=== PATIENT | female | born 2000 | race Caucasian/White ===

== ENCOUNTER 2019-12-20 10:39 | Emergency (ER) | payer OTHER ==
--- NOTE | 2019-12-20 11:01 | ED ---
General Adult HPI - General Chief complaint: Skin/Abscess/Foreign Body Stated complaint: rash Time Seen by Provider: 12/20/19 10:54 Source: patient, RN notes reviewed Mode of arrival: ambulatory Limitations: no limitations - History of Present Illness Initial comments: 19-year-old female with a past medical history of bipolar disorder presents to the emergency room for rash. Patient states she has had an itchy rash on her chest and abdomen for about 4 days now. Patient initially thought it with a heat rash but it is not going away. Patient does admit to sore throat as well. She denies fevers. She denies any other constitutional symptoms.Patient has no other complaints at this time including shortness of breath, chest pain, abdominal pain, nausea or vomiting, headache, or visual changes. - Related Data Home Medications Medication Instructions Recorded Confirmed QUEtiapine FUMARATE [SEROquel XR] 50 mg PO HS 12/05/13 06/23/14 Previous Rx's Medication Instructions Recorded Acetaminophen-Codeine 300-30mg 1 each PO Q6H PRN #20 tablet 06/23/14 [Tylenol #3] Ibuprofen [Motrin] 400 mg PO Q8HR PRN #20 tab 06/23/14 Ondansetron Odt [Zofran ODT] 4 mg PO Q8HR PRN #10 tab 06/23/14 Sulfamethoxazole/Trimethoprim 1 each PO Q12H #20 tab 06/23/14 [Bactrim DS 800-160 mg] Permethrin 5% Cream [Elimite] 1 applic TOPICAL ONCE #1 tube 12/20/19 hydrOXYzine HCL [Atarax] 25 mg PO TID PRN #20 tab 12/20/19 predniSONE 50 mg PO DAILY #5 tablet 12/20/19 Allergies Allergy/AdvReac Type Severity Reaction Status Date / Time No Known Allergies Allergy Verified 12/20/19 10:45 Review of Systems ROS Statement: Those systems with pertinent positive or pertinent negative responses have been documented in the HPI. ROS Other: All systems not noted in ROS Statement are negative. Past Medical History Past Medical History: No Reported History Additional Past Medical History / Comment(s): bipolar. adopted History of Any Multi-Drug Resistant Organisms: None Reported Past Surgical History: No Surgical Hx Reported Past Anesthesia/Blood Transfusion Reactions: No Reported Reaction Past Psychological History: Bipolar Smoking Status: Current every day smoker Past Alcohol Use History: None Reported Past Drug Use History: None Reported General Exam Limitations: no limitations General appearance: alert, in no apparent distress Head exam: Present: atraumatic, normocephalic, normal inspection Eye exam: Present: normal appearance, PERRL, EOMI. Absent: scleral icterus, conjunctival injection ENT exam: Present: normal exam, normal oropharynx (No tonsillar exudates bilaterally, uvula midline), mucous membranes moist, TM's normal bilaterally, normal external ear exam Neck exam: Present: normal inspection, full ROM. Absent: tenderness, meningismus Respiratory exam: Present: normal lung sounds bilaterally. Absent: respiratory distress, wheezes, rales, rhonchi, stridor Cardiovascular Exam: Present: regular rate, normal rhythm, normal heart sounds. Absent: systolic murmur, diastolic murmur, rubs, gallop, clicks GI/Abdominal exam: Present: soft, normal bowel sounds. Absent: distended, tenderness, guarding, rebound, rigid Neurological exam: Present: alert Skin exam: Present: rash (Patient has an erythematous sandpaper like erythemat ous rash noted to the chest and abdomen.) Course Vital Signs 12/20/19 10:46 Temperature 98.1 F Pulse Rate 76 Respiratory 18 Rate Blood Pressure 125/86 O2 Sat by Pulse 100 Oximetry Medical Decision Making - Medical Decision Making patient has an erythematous somewhat sandpapery rash with excoriations and tracking noted to the chest and abdomen and also the flexor surfaces of the wrist. it is possible that patient has scabies. At this time she'll be treated with permethrin. She'll also be given a course of steroids and Atarax. She will follow up with dermatology. She'll return here for any worsening symptoms.patient denies any chance of . - Lab Data Lab Results 12/20/19 Range/Units 11:04 Group A Strep Rapid Negative (Negative) Disposition Clinical Impression: Rash Disposition: HOME SELF-CARE Condition: Good Instructions (If sedation given, give patient instructions): Scabies (ED), Acute Rash (ED) Additional Instructions: Please use medications as directed. Do not drive while taking Atarax. Follow- up with your doctor in one to 2 days. Follow up with dermatology as well. If you have any worsening symptoms return to the emergency room. Prescriptions: hydrOXYzine HCL [Atarax] 25 mg PO TID PRN #20 tab PRN Reason: Itching Permethrin 5% Cream [Elimite] 1 applic TOPICAL ONCE #1 tube predniSONE 50 mg PO DAILY #5 tablet Is patient prescribed a controlled substance at d/c from ED?: No Referrals: Era Gomez MD [Primary Care Provider] - 1-2 days Niru Ontiveros MD [STAFF PHYSICIAN] - 1-2 days Time of Disposition: 11:54
[2019-12-20 12:11] VITALS: BP 126/78; PULSE 82; RESP 16; TEMP 97.7
== END 2019-12-20 12:11 | disposition home or self-care (01) ==
LOC: EC 10:39
DX: R21 Rash and other nonspecific skin eruption (principal); F17.200 Nicotine dependence, unspecified, uncomplicated; F31.9 Bipolar disorder, unspecified; J02.9 Acute pharyngitis, unspecified; Z79.899 Other long term (current) drug therapy
CPT/HCPCS: 87081; 87430; 99283

== ENCOUNTER 2020-11-04 13:08 | Emergency (ER) | payer BC ==
[2020-11-04] MEDS ORDERED: HYDROcodone/APAP 5-325MG 1 EACH TAB PO STA (14:31)
[2020-11-04] MEDS ORDERED: SODIUM CHLORIDE 0.9% 1,000 ML IV STA (14:31)
--- NOTE | 2020-11-04 14:34 | ED ---
General Adult HPI - General Chief complaint: Dizziness Stated complaint: Dizziness Source: patient, RN notes reviewed, old records reviewed Mode of arrival: wheelchair Limitations: no limitations - History of Present Illness Initial comments: 20-year-old ill-appearing and pleasant white female, alert and oriented 4, presents to the emergency room with complaints of right-sided rib pain for 2 months. 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 Today she had to leave at 10:00 to come in for chest x-ray and during the chest x-ray she. Dizzy with the room was spinning. She states that she did not pass out and did not hit her head. She did not eat at all today and has not been having adequate fluid intake. This is never happened to her before. Patient states she has history of bipolar but does not take any medication on a daily basis. She is 2-3 pack a day smoker. She also vapes. She did try Motrin for the pain prior to arrival today but had no relief. -: month(s) (2) Radiation: non-radiation Severity scale (1-10): 10 Quality: stabbing Consistency: constant Improves with: immobilization Worsens with: movement Associated Symptoms: other (Dizziness) Treatments Prior to Arrival: NSAID, other (Chest x-ray) - Related Data Home Medications Medication Instructions Recorded Confirmed QUEtiapine FUMARATE [SEROquel XR] 50 mg PO HS 12/05/13 06/23/14 Previous Rx's Medication Instructions Recorded Acetaminophen-Codeine 300-30mg 1 each PO Q6H PRN #20 tablet 06/23/14 [Tylenol #3] Ibuprofen [Motrin] 400 mg PO Q8HR PRN #20 tab 06/23/14 Ondansetron Odt [Zofran ODT] 4 mg PO Q8HR PRN #10 tab 06/23/14 Sulfamethoxazole/Trimethoprim 1 each PO Q12H #20 tab 06/23/14 [Bactrim DS 800-160 mg] Permethrin 5% Cream [Elimite] 1 applic TOPICAL ONCE #1 tube 12/20/19 hydrOXYzine HCL [Atarax] 25 mg PO TID PRN #20 tab 12/20/19 predniSONE 50 mg PO DAILY #5 tablet 12/20/19 Allergies Allergy/AdvReac Type Severity Reaction Status Date / Time No Known Allergies Allergy Verified 11/04/20 13:26 Review of Systems ROS Statement: Those systems with pertinent positive or pertinent negative responses have been documented in the HPI. ROS Other: All systems not noted in ROS Statement are negative. Past Medical History Past Medical History: No Reported History Additional Past Medical History / Comment(s): bipolar. adopted History of Any Multi-Drug Resistant Organisms: None Reported Past Surgical History: No Surgical Hx Reported Past Anesthesia/Blood Transfusion Reactions: No Reported Reaction Past Psychological History: Bipolar Smoking Status: Current every day smoker Past Alcohol Use History: None Reported Past Drug Use History: None Reported General Exam Limitations: no limitations General appearance: alert, in no apparent distress Head exam: Present: atraumatic, normocephalic, normal inspection Eye exam: Present: normal appearance, PERRL, EOMI. Absent: scleral icterus, conjunctival injection, periorbital swelling Pupils: Present: normal accommodation ENT exam: Present: normal exam, normal oropharynx, mucous membranes moist Neck exam: Present: normal inspection, full ROM. Absent: tenderness, meningismus, lymphadenopathy, thyromegaly Respiratory exam: Present: normal lung sounds bilaterally, chest wall tenderness (Right sided lower rib pain anterior chest no bruising). Absent: respiratory distress, wheezes, rales, rhonchi, stridor, accessory muscle use, decreased breath sounds, prolonged expiratory Cardiovascular Exam: Present: regular rate, normal rhythm, normal heart sounds. Absent: systolic murmur, diastolic murmur, rubs, gallop, clicks GI/Abdominal exam: Present: soft, normal bowel sounds. Absent: distended, tenderness, guarding, rebound, rigid Extremities exam: Present: normal inspection, full ROM, normal capillary refill. Absent: tenderness, pedal edema, joint swelling, calf tenderness Back exam: Present: normal inspection, full ROM. Absent: tenderness, CVA tenderness (R), CVA tenderness (L), muscle spasm, paraspinal tenderness, vertebral tenderness, rash noted Neurological exam: Present: alert, oriented X3, CN II-XII intact Psychiatric exam: Present: normal affect, normal mood Skin exam: Present: warm, dry, intact, normal color. Absent: rash, cyanosis, diaphoretic, erythema, petechiae, pallor, mottled Course Vital Signs 11/04/20 13:22 Temperature 98.0 F Pulse Rate 69 Respiratory 18 Rate Blood Pressure 101/70 O2 Sat by Pulse 99 Oximetry EKG Findings - EKG Results: EKG: sinus rhythm (Ventricular rate of 71, ND interval 0.156, QRS of 0.78, QTC of 0.410) Medical Decision Making - Medical Decision Making Hemoglobin and hematocrit is 14 and 43 respectively, WBC count 6.6, potassium is 4.0, troponin is negative at 0.012, glucose is 83. Patient was given a liter of normal saline she states that she hasn't eaten or drank anything today and is working in a factory. Patient also states that she is a 2-3 pack-a-day smoker along with vaping. X-ray done earlier today shows no definitive rib fractures. Her pain is likely due to repetitive movement at work. She was given [place] for pain and reports relief. She'll be discharged home to follow up with her primary care doctor. Case discussed with Dr. Tate. - Lab Data Result diagrams: 11/04/20 14:40 11/04/20 14:40 Lab Results 11/04/20 11/04/20 11/04/20 Range/Units 14:40 14:40 14:40 WBC 6.6 (3.8-10.6) k/uL RBC 5.18 (3.80-5.40) m/uL Hgb 14.8 (11.4-16.0) gm/dL Hct 43.5 (34.0-46.0) % MCV 83.9 (80.0-100.0) fL MCH 28.6 (25.0-35.0) pg MCHC 34.2 (31.0-37.0) g/dL RDW 13.1 (11.5-15.5) % Plt Count 242 (150-450) k/uL MPV 7.8 Neutrophils % 59 % Lymphocytes % 26 % Monocytes % 8 % Eosinophils % 5 % Basophils % 0 % Neutrophils # 3.9 (1.3-7.7) k/uL Lymphocytes # 1.7 (1.0-4.8) k/uL Monocytes # 0.6 (0-1.0) k/uL Eosinophils # 0.3 (0-0.7) k/uL Basophils # 0.0 (0-0.2) k/uL Sodium 141 (137-145) mmol/L Potassium 4.0 (3.5-5.1) mmol/L Chloride 105 (98-107) mmol/L Carbon Dioxide 26 (22-30) mmol/L Anion Gap 10 mmol/L BUN 11 (7-17) mg/dL Creatinine 0.63 (0.52-1.04) mg/dL Est GFR (CKD-EPI)AfAm >90 (>60 ml/min/1.73 sqM) Est GFR (CKD-EPI)NonAf >90 (>60 ml/min/1.73 sqM) Glucose 83 (74-99) mg/dL Calcium 9.6 (8.4-10.2) mg/dL Total Bilirubin 0.3 (0.2-1.3) mg/dL AST 24 (14-36) U/L ALT 17 (4-34) U/L Alkaline Phosphatase 69 (38-126) U/L Troponin I <0.012 (0.000-0.034) ng/mL Total Protein 7.3 (6.3-8.2) g/dL Albumin 4.5 (3.5-5.0) g/dL Disposition Clinical Impression: Musculoskeletal chest pain, Postural dizziness with near syncope Disposition: HOME SELF-CARE Condition: Good Instructions (If sedation given, give patient instructions): Chest Pain (ED), D izziness (ED) Additional Instructions: Decrease your smoking. Increase your fluid intake. Follow-up with your primary care doctor in 1 week. Take Motrin as needed for right-sided rib pain. Return with worsening symptoms, difficulty breathing or fevers. Is patient prescribed a controlled substance at d/c from ED?: No Referrals: Era Gomez MD [Primary Care Provider] - 1-2 days Time of Disposition: 15:50
[2020-11-04 15:02] LABS: Basophils % (A) 0 %; Eosinophils # (A) 0.3 k/uL (0-0.7); Eosinophils % (A) 5 %; HCT 43.5 % (34.0-46.0); HGB 14.8 gm/dL (11.4-16.0); Lymphocytes # (A) 1.7 k/uL (1.0-4.8); Lymphocytes % (A) 26 %; MCH 28.6 pg (25.0-35.0); MCHC 34.2 g/dL (31.0-37.0); MCV 83.9 fL (80.0-100.0); Mean Platelet Volume 7.8; Monocytes # (A) 0.6 k/uL (0-1.0); Monocytes % (A) 8 %; Neutrophils # (A) 3.9 k/uL (1.3-7.7); Neutrophils % (A) 59 %; Platelet Count 242 k/uL (150-450); RBC 5.18 m/uL (3.80-5.40); RDW 13.1 % (11.5-15.5); WBC 6.6 k/uL (3.8-10.6)
[2020-11-04 15:12] LABS: ALT 17 U/L (4-34); AST 24 U/L (14-36); African American GFR (CKD) >90 (>60 ml/min/1.73 sqM); Albumin 4.5 g/dL (3.5-5.0); Alkaline Phosphatase 69 U/L (38-126); Anion Gap 10 mmol/L; Blood Urea Nitrogen 11 mg/dL (7-17); Calcium 9.6 mg/dL (8.4-10.2); Carbon Dioxide 26 mmol/L (22-30); Chloride 105 mmol/L (98-107); Glucose 83 mg/dL (74-99); Non-African American GFR(CKD) >90 (>60 ml/min/1.73 sqM); Sodium 141 mmol/L (137-145); Total Bilirubin 0.3 mg/dL (0.2-1.3); Total Protein 7.3 g/dL (6.3-8.2)
[2020-11-04 16:22] VITALS: BP 119/74; PULSE 74; RESP 17; TEMP 98.2
== END 2020-11-04 16:25 | disposition home or self-care (01) ==
LOC: EC 13:08
DX: R07.89 Other chest pain (principal); R42 Dizziness and giddiness; R55 Syncope and collapse; F17.200 Nicotine dependence, unspecified, uncomplicated
CPT/HCPCS: 80053; 84484; 85025; 93005; 96360; 99285

== ENCOUNTER → 2020-11-04 | Outpatient (CLI) | payer BC ==
[2020-11-04 13:04] LABS: Glucose,Whole Blood 102 mg/dL (75-99)
--- NOTE | 2020-11-04 15:11 | XR ---
EXAMINATION TYPE: XR ribs bilateral DATE OF EXAM: 11/04/2020 COMPARISON: NONE HISTORY: Right lower rib pain x2 months TECHNIQUE: 7 views chest and neck FINDINGS: IMPRESSION: No definite displaced rib fractures.
== END | disposition home or self-care (01) ==
LOC: RADXRMAIN 12:26
PROVIDERS: ATTEND Internal Medicine
DX: R07.81 Pleurodynia (principal)
CPT/HCPCS: 71110

== ENCOUNTER 2023-07-25 17:44 | Outpatient (CLI) | payer BC ==
[2023-07-25 18:18] VITALS: BP 127/86; PULSE 64; RESP 15; TEMP 98.2
[2023-07-25] MEDS: LACTATED RINGERS 1,000 ML IV ONE (18:54)
--- NOTE | 2023-07-25 22:49 | US ---
EXAMINATION TYPE: US OB BPP wo non-stress DATE OF EXAM: 07/25/2023 COMPARISON: NONE CLINICAL INDICATION: Female, 22 years old with history of Low baseline; low heart rate TECHNIQUE: Limited transabdominal (TA) ultrasound of the pelvis was performed, for the above indicati ons. Scoring by the oracle hrms developer during real-time assessment. FINDINGS: BPP PARAMETERS: PRESENTATION: Vertex LIE: Longitudinal?? HEART RATE: 102 bpm RHYTHM: Normal BURKE: 14.4 DIAPHRAGM IMAGED: Yes BPP SCORIN. Breathin (1 episode of breathing of 30 second duration in 30 minutes of scanning time) 2. Movement: 2 (at least 3 discrete body movements in 30 minutes) 3. Tone: 2 (1 episode of active flexion/extension of limb) 4. BURKE: 2 (BURKE index > 5cm) PRODUCT INSPECTION SUPERVISOR NOTES: IMPRESSION: * BPP TOTAL SCORE: 8 / 8 * Vertex presentation fetus with heart rate 102 bpm, normal BURKE.
== END 2023-07-25 20:00 | disposition home or self-care (01) ==
LOC: FBPOP 17:44
PROVIDERS: ATTEND Obstetrics & Gynecology
DX: O36.5930 Maternal care for other known or suspected poor fetal growth, third trimester, not applicable or unspecified (principal); Z3A.38 38 weeks gestation of pregnancy
CPT/HCPCS: 59025; 76819; 96360; 99214

== ENCOUNTER 2023-07-28 09:54 | Outpatient (CLI) | payer BC ==
[2023-07-28 11:03] LABS: Appearance,Urine Cloudy (Clear); Bacteria,Urine Rare /hpf; Bilirubin,Urine Negative (Negative); Blood,Urine Negative (Negative); Color,Urine Colorless; Glucose,Urine (UA) Negative (Negative); Ketones,Urine Negative (Negative); Leukocyte Esterase,Urine Small (Negative); Mucus,Urine Rare /hpf; Nitrite,Urine Negative (Negative); Protein,Urine Negative (Negative); RBC,Urine 1 /hpf (0-5); Specific Gravity,Urine 1.012 (1.001-1.035); Squamous Epithelial Cell,Urine 8 /hpf (0-4); Urobilinogen,Urine <2.0 mg/dL (<2.0); WBC,Urine 3 /hpf (0-5)
[2023-07-28 12:10] VITALS: BP 122/95; PULSE 63; RESP 18; TEMP 97.7
--- NOTE | 2023-07-29 08:13 | P.MSEPDOC ---
Presenting Problems - Arrival Data Date of Arrival on Unit: 07/28/23 Time of Arrival on Unit: 09:54 Mode of Transport: Ambulatory - Complaint OB-Reason for Admission/Chief Complaint: Possible Onset of Labor Comment: cramping and pain with voiding since 229 Medical History - Information : 1 Para: 0 Term: 0 : 0 Abortions: Spontaneous or Elective: 0 Number of Living Children: 0 - Gestational Age Gestational Age by HILARIA (wks/days): 38 Weeks and 5 Days - History Complications: Smoker Comment: hai Review of Systems - Review of Systems Constitutional: No problems Breast: No problems ENT: No problems Cardiovascular: No problems Respiratory: No problems Gastrointestinal: No problems Genitourinary: No problems Musculoskeletal: No problems Neurological: No problems Skin: No problems Vital Signs - Temperature Temperature: 97.7 F Temperature Source: Temporal Artery Scan - Pulse Right Sitting Brachial Pulse Rate: 63 Pulse Assessment Method: Automatic Cuff - Respirations Respiratory Rate: 18 Oxygen Delivery Method: Room Air - Blood Pressure Right Arm Sitting Blood Pressure: 122/95 Blood Pressure Mean: 104 Blood Pressure Source: Automatic Cuff Left Arm Sitting Blood Pressure: 112/83 Blood Pressure Mean: 92 Blood Pressure Source: Automatic Cuff Medical Screen Scoring - Cervical Exam Dilation (cm): 1 Effacement (%): 70 Station: -2 Membranes: Intact - Assessment - Baby A Baseline FHR: 120 Heart Rate - NICHD Category: Category I (Normal) NST: Reactive Physician Notification - Physician Notified Physician Notified Date: 07/28/23 Physician Notified Time: 11:25 Physician: Tran Red New Order Received: Yes (dc home) Maternal Triage Index - Maternal Triage Index Presenting for scheduled procedure w/no complaint: No - Stat/Priority 1 Stat Priority 1: No - Urgent/Priority 2 Urgent Priority 2: No - Prompt/Priority 3 Prompt Priority 3: No - Non-Urgent/Priority 4 Non-Urgent Priority 4: Yes Criteria Met for Priority 4: irreg contractions, UA result reported, no cervical change in one hour. DC home. follow up in the office next week as scheduled. Disposition - Disposition OB Disposition: Discharge to home, Written follow up instructions reviewed Discharge Date: 07/28/23 Discharge Time: 11:30 I agree with the RN Medical Screening Exam: Yes Case reviewed; plan agreed upon as documented in EMR&OBIX.: Yes Diagnosis: PRIMARY INADEQUATE CONTRACTIONS
== END 2023-07-28 11:30 | disposition home or self-care (01) ==
LOC: FBPOP 09:54
PROVIDERS: ATTEND Obstetrics & Gynecology
DX: O47.1 False labor at or after 37 completed weeks of gestation (principal); O62.0 Primary inadequate contractions; Z3A.38 38 weeks gestation of pregnancy
CPT/HCPCS: 59025; 81001; 99213

== ENCOUNTER 2023-08-02 09:07 | Inpatient (IN) | payer BC ==
[2023-08-02] MEDS ORDERED: OXYTOCIN 10 UNIT/ML 1 ML VIAL IM PRN ×2 (11:17→20:14)
[2023-08-02] MEDS ORDERED: LIDOCAINE 0.5% (PF) 5 MG/ML (50 ML SDV) SQ PRN (11:17)
[2023-08-02] MEDS ORDERED: TERBUTALINE 1 MG/ML VIAL SQ PRN (11:17)
[2023-08-02] MEDS ORDERED: miSOPROStoL 200 MCG TAB PO PRN ×2 (11:17→20:14)
[2023-08-02] MEDS ORDERED: CARBOPROST TROMETHAMINE 250 MCG/ML 1 ML AMP IM PRN ×2 (11:17→20:14)
[2023-08-02] MEDS ORDERED: METHYLERGONOVINE 0.2 MG/ML 1 ML AMP IM PRN ×2 (11:17→20:14)
[2023-08-02] MEDS ORDERED: TRANEXAMIC 1,000 MG/100ML-NACL 1,000 MG in EMPTY BAG 1 BAG IV PRN ×2 (11:17→20:14)
[2023-08-02 11:40] LABS: Basophils % (A) 0 %; Eosinophils # (A) 0.2 k/uL (0-0.7); Eosinophils % (A) 2 %; HCT 34.7 % (34.0-46.0); HGB 11.1 gm/dL (11.4-16.0); Hypochromasia Slight; Lymphocytes # (A) 1.9 k/uL (1.0-4.8); Lymphocytes % (A) 16 %; MCH 25.8 pg (25.0-35.0); MCHC 32.1 g/dL (31.0-37.0); MCV 80.5 fL (80.0-100.0); Mean Platelet Volume 8.6; Monocytes # (A) 0.9 k/uL (0-1.0); Monocytes % (A) 7 %; Neutrophils # (A) 8.7 k/uL (1.3-7.7); Neutrophils % (A) 73 %; Platelet Count 329 k/uL (150-450); Poikilocytosis Slight; RBC 4.31 m/uL (3.80-5.40); RDW 14.9 % (11.5-15.5)
[2023-08-02] MEDS: LACTATED RINGERS 1,000 ML IV SCH ×2 (13:00→21:00)
--- NOTE | 2023-08-02 14:58 | P.HPOB ---
History of Present Illness H&P Date: 08/02/23 Chief Complaint: Labor Ms. Wong is a 22 year old at 39 weeks and 3 days with EDC of 08/06/2023 by 29 week US who presents to labor and delivery with regular, painful uterine contractions. She denies leaking of fluid, vaginal bleeding. She is feeling normal movement. The has been complicated by late presentation to care in the third trimester. The patient also vapes tobacco despite smoking cessation counseling and a discussion about the risks to the fetus. The fetus is small for gestational age measuring in the 15%ile at 38 weeks gestation on utlrasound. work-up: blood type O positive, antibody negative. Rubella immune, VDRL non-reactive, HIV negative, HBsAg negative, HCV Ab non-reactive, gonorrhea negative, chlamydia negative, 1 hour GTT within normal limits, GBS negative. Patient declined TDap and flu vaccine. Past Medical History Past Medical History: No Reported History Additional Past Medical History / Comment(s): bipolar. adopted History of Any Multi-Drug Resistant Organisms: None Reported Past Surgical History: No Surgical Hx Reported Past Anesthesia/Blood Transfusion Reactions: No Reported Reaction Past Psychological History: Bipolar Smoking Status: Never smoker Past Alcohol Use History: None Reported Past Drug Use History: None Reported - Past Family History Mother History Unknown: Yes Family Medical History: No Reported History Medications and Allergies Home Medications Medication Instructions Recorded Confirmed Type Vit No.179/Iron/Folic 1 tablet PO DAILY 07/28/23 08/02/23 History [ Tablet] Allergies Allergy/AdvReac Type Severity Reaction Status Date / Time No Known Allergies Allergy Verified 08/02/23 09:34 Exam Vital Signs Temp Pulse Resp BP Pulse Ox 08/02/23 13:04 99.0 F 66 16 125/84 99 08/02/23 10:32 98.3 F 62 16 131/86 Intake and Output 08/01/23 08/02/23 08/02/23 22:59 06:59 14:59 Other: Weight 57.606 kg Focused physical exam is performed. Patient is a healthy-appearing in no apparent distress. Breathing is non-labored. Abdomen is gravid and non-tender. Cervix is 3/90/-1 (changed from 1/90/-2 on arrival) and AROM is undertaken revealing clear amniotic fluid. Extremities are non-tender and non-edematous. heart tones are Category I and the tocometer shows contractions every 5 minutes. Results Result Diagrams: 08/02/23 11:20 Abnormal Lab Results - Last 24 Hours (Table) 08/02/23 Range/Units 11:20 WBC 12.0 H (3.8-10.6) k/uL Hgb 11.1 L (11.4-16.0) gm/dL Neutrophils # 8.7 H (1.3-7.7) k/uL Assessment and Plan Assessment: 22 year old at 39 weeks and 3 days presenting in labor Plan: Admit, NPO, expectant management, continuous EFM and tocometer, close monitoring of patient. Anticipate vaginal delivery.
[2023-08-02] MEDS: OXYTOCIN 30 UNITS/500 ML NS 30 UNIT in SALINE 1 500ML.BAG IV SCH ×2 (18:06→21:00)
[2023-08-02] MEDS: CITRIC ACID-SODIUM CITRATE 15 ML CUP PO ONE (20:20)
--- NOTE | 2023-08-02 21:33 | P.OP ---
Date of Procedure: 08/02/23 Preoperative Diagnosis: 1. Term IUP at 39 weeks 2. Arrest of descent 3. caput Postoperative Diagnosis: 1. Term IUP at 39 weeks 2. Arrest of descent 3. caput 4. Asynclitic presentation 5. Right Occiput transverse presentation Procedure(s) Performed: Primary Lower Transverse Section Implants: None Anesthesia: epidural Surgeon: Padmini Rhodes Competitive Athlete #1: Eleanor Lawrence Estimated Blood Loss (ml): 540 IV fluids (ml): 900 Urine output (ml): 100 (dark yellow ) Pathology: none sent Condition: stable Disposition: floor Indications for Procedure: Ms. Wong is a 22 year old at 39 weeks and 3 days who presented in labor. Amniotomy was performed. The patient received epidural anesthesia per her request. Pitocin augmentation was started. The patient reached complete dilation and had arrest of descent after pushing for 2 hours with no descent or rotation of the head. The risks, benefits, and alternatives to section were discussed with the patient including risk of bleeding, infection, damage to surrounding structures including bladder/bowels/ureters, and post-operative VTE. The patient understands these risks and desires to proceed with section. Operative Findings: Clear amniotic fluid. Right occiput transverse presentation. Viable male infant with apgars of 9 and 9. Weight 6 pounds and 13 ounces (3086 grams) Description of Procedure: The patient was taken to the operating room where spinal anesthesia was found to be adequate. Two grams of Ancef were given for infection prophylaxis. [aginal prep was performed prior to the surgery. She was prepared and draped in the dorsal supine position with a leftward tilt. A Pfannenstiel skin incision was made with the scalpel. The incision was carried down to the fascia with a bovie. The fascia was incised and extended laterally with White scissors. The superior aspect of the fascia was grasped with Emil clamps. The underlying rectus muscle was dissected off sharply with White scissors. In a similar fashion, the inferior aspect of the fascia was elevated with Emil clamps and the rectus muscle and pyramidalis were dissected off. Excellent hemostasis was achieved with the bovie. The rectus muscle was in the midline down to the level of the pubic symphysis. Pre-peritoneal fatty tissue was bluntly dissected to expose the peritoneum. The peritoneum was found to be free of adherent bowel and entered sharply with White scissors. The peritoneal incision was extended superiorly and inferiorly to the bladder reflection with good visualization of the bladder. The bladder blade was inserted and vesicouterine peritoneum was identified. Intraabdominal survey revealed scant, clear peritoneal fluid and the thinned-out lower uterine segment. The bladder blade was repositioned to keep the bladder out of the operative field. The lower uterine segment was incised with a scalpel. The amniotic sac was ruptured with an Allis clamp and clear fluid was noted. The uterine incision was extended bluntly with lateral and upward traction. The fetus was in right occiput transverse position. The head was elevated out of the pelvis with special attention paid to avoid using the uterine incision as a fulcrum. Gentle fundal pressure was applied once the head was brought into the incision. The infant was delivered with no difficulty. The mouth and nose were suctioned with a bulb. The cord was clamped and cut. Infant was noted to be spontaneously crying. The was handed off to the a and p mechanic. IV oxytocin was initiated to facilitate uterine contractions. The placenta was delivered intact with manual massage of uterine fundus. The uterus was then exteriorized and the inside of the uterus was gently wiped with a lap sponge to assure complete removal of placental membranes. A left lateral extension to the hysterotomy was noted. This was repaired in a running locked fashion with 0-Polysorb. The uterine incision was closed with a 0-Polysorb suture in a running locked fashion. A second imbricating layer of 0-Polysorb was placed along the incision. The ovaries and tubes were found to be normal. The uterus, tubes, and ovaries were then gently returned to the abdominal cavity. The blood clots and fluid were wiped out of the abdomen and pelvis with moist laparotomy sponges. The pelvis was copiously suction irrigated. Surgicel powder was placed over both corners of the uterine incision for bleeding prophylaxis. The uterine incision was reinspected and excellent hemostasis was noted. The fascial layer was closed with a 0-Vicryl suture. The subcutaneous tissue was reapproximated with 2-0 Plain Gut. The skin was closed with 4-0 Monocryl in a subcuticular fashion. The patient tolerated the procedure well. All the counts were correct times two. The patient was taken to the recovery room in a stable condition.
[2023-08-02] MEDS ORDERED: METOCLOPRAMIDE 5 MG/ML 2 ML VIAL IVP PRN (23:28)
[2023-08-02] MEDS ORDERED: NALOXONE 0.4 MG/ML 1 ML VIAL IV PRN (23:28)
[2023-08-02] MEDS ORDERED: diphenhydrAMINE 50 MG/ML 1 ML VIAL IVP PRN ×2 (23:28)
[2023-08-02] MEDS ORDERED: ONDANSETRON 4 MG/2 ML VIAL IVP PRN (23:28)
[2023-08-02] MEDS ORDERED: diphenhydrAMINE 25 MG CAP PO PRN (23:28)
[2023-08-02] MEDS ORDERED: ZOLPIDEM 5 MG TAB PO PRN (23:28)
[2023-08-02] MEDS ORDERED: diphenhydrAMINE 50 MG CAP PO PRN (23:28)
[2023-08-03] MEDS: ACETAMINOPHEN TAB 500 MG TAB PO SCH (02:52)
[2023-08-03] MEDS: KETOROLAC 15 MG/ML 1 ML VIAL IVP SCH (05:24)
[2023-08-03] MEDS: IBUPROFEN 600 MG TAB PO SCH (05:25)
[2023-08-03 06:43] LABS: Basophils % (A) 0 %; Eosinophils % (A) 0 %; HCT 27.2 % (34.0-46.0); Hypochromasia Slight; Lymphocytes # (A) 1.1 k/uL (1.0-4.8); Lymphocytes % (A) 5 %; MCH 26.4 pg (25.0-35.0); MCHC 32.5 g/dL (31.0-37.0); MCV 81.4 fL (80.0-100.0); Mean Platelet Volume 8.5; Monocytes # (A) 1.3 k/uL (0-1.0); Monocytes % (A) 6 %; Neutrophils # (A) 18.7 k/uL (1.3-7.7); Neutrophils % (A) 88 %; Platelet Count 241 k/uL (150-450); Poikilocytosis Slight; RBC 3.34 m/uL (3.80-5.40); RDW 14.7 % (11.5-15.5); WBC 21.4 k/uL (3.8-10.6)
[2023-08-03 06:47] LABS: HGB 8.8 gm/dL (11.4-16.0)
[2023-08-03] MEDS: SENNOSIDES-DOCUSATE SODIUM 1 EACH TAB PO SCH (08:33)
--- NOTE | 2023-08-03 09:43 | P.PNOBGPC ---
Subjective - Subjective Principal diagnosis: s/p primary section Interval history: The patient is doing well this morning and had no acute events overnight. She has no complaints this morning. She reports minimal lochia, passing flatus, ambulating, and eating/drinking without nausea or vomiting. The patient has yet to void after deleon was removed this AM. She is her without difficulty. She denies chest pain, shortness of breathing, fevers, or chills overnight. She denies pain or swelling in the legs. Patient reports: Reports appetite normal, Reports pain well controlled, Reports ambulating normally [place]: doing well, nursing well Objective - Vital Signs Latest vital signs: Vital Signs Temp Pulse Resp BP Pulse Ox 08/03/23 07:50 98.3 F 61 107/57 96 08/03/23 04:00 98.2 F 75 16 106/63 100 08/02/23 23:30 98.9 F 76 16 127/67 98 08/02/23 23:15 76 16 123/66 98 08/02/23 23:00 75 16 121/63 98 08/02/23 22:45 74 16 120/62 95 08/02/23 22:30 78 16 152/73 97 08/02/23 22:15 78 16 138/63 98 08/02/23 22:00 74 16 154/79 97 08/02/23 21:45 88 16 152/72 98 08/02/23 21:30 97.8 F 83 16 144/76 98 08/02/23 13:04 99.0 F 66 16 125/84 99 08/02/23 10:32 98.3 F 62 16 131/86 Intake and Output 08/02/23 08/03/23 08/03/23 22:59 06:59 14:59 Output Total 530 1505 200 Balance -530 -1505 -200 Output: Urine 1400 200 Uretheral (Deleon) 1000 Estimated Blood Loss 530 Output, Quantitative 105 Blood Loss Other: Voiding Method Indwelling Catheter Indwelling Catheter # Voids 1 # Bowel Movements 0 - Exam Extremities: Present: normal Abdomen: Present: normal appearance, soft Incision: Present: normal, dry, dressed Uterus: Present: normal, firm - Labs Labs: Abnormal Lab Results - Last 24 Hours (Table) 08/02/23 08/03/23 Range/Units 11:20 06:03 WBC 12.0 H 21.4 H (3.8-10.6) k/uL RBC 3.34 L (3.80-5.40) m/uL Hgb 11.1 L 8.8 L D (11.4-16.0) gm/dL Hct 27.2 L (34.0-46.0) % Neutrophils # 8.7 H 18.7 H (1.3-7.7) k/uL Monocytes # 1.3 H (0-1.0) k/uL Assessment and Plan Assessment: 22 year old now POD#1 s/p primary section 2/2 arrest of descent in second stage Plan: 1. Postoperative. Patient doing well. Awaiting void after deleon was removed this AM. Continue to monitor. 2. Viable male infant. At bedside, doing well. Patient would like to postpone circumcision until tomorrow because she has visitors coming today. Dispo: Anticipate discharge home tomorrow on POD#2.
--- NOTE | 2023-08-03 11:15 | P.PN ---
Progress Note - Text 08/03/83 643am 22-year-old female status post and received Duramorph epidural catheter. Patient seen and evaluated for postop pain control she has a VAS of 5 with no complaint of nausea vomiting or pruritus.
[2023-08-03] MEDS: FERROUS SULFATE 325 MG TAB PO SCH (14:22)
[2023-08-03 23:19] VITALS: RESP 16
[2023-08-04 08:45] VITALS: BP 116/74; PULSE 68; TEMP 98.5
--- NOTE | 2023-08-04 12:01 | P.DS ---
Providers Date of admission: 08/02/23 10:56 Expected date of discharge: 08/04/23 Attending physician: Padmini Rhodes MD Primary care physician: Stated None - Discharge Diagnosis(es) (1) S/P primary low transverse Current Visit: Yes Status: Acute Hospital Course: The patient is a 22-year-old 1 para 0 admitted at 39-3/7 weeks by late ultrasound. She is admitted in early labor with all signs reassuring, category 1 heart rate tracing. Her was uncomplicated aside from very late presentation for care in the third trimester. On labor and delivery, she had artificial rupture of membranes performed and Pitocin augmentation started. An epidural catheter was placed for analgesia. She progressed to complete and pushed for more than 2 hours with no descent of the head or rotation. After counseling, she agreed to proceed with section was taken to the operating room where she was delivered of a viable 6 pound 13 ounce baby boy with Apgars of 9 at 1 minute and 9 at 5 minutes. Her and postoperative course was unremarkable with vital signs remaining stable and her temperature was afebrile throughout. She was deemed stable for discharge on and postoperative day #2. She was discharged home to follow-up in the office in 2 weeks for an incision check in 6 weeks routinely. Discharge instructions included calling for any significantly increased bleeding or foul-smelling lochia, significantly increased fever abdominal pain, perineal complaints, breast complaints, incisional complaints, or anything else that concerned her. She was additionally instructed to have nothing in the vagina for at least 6 weeks time to include intercourse and to abstain from any heavy lifting over the same period of time. She was lastly instructed to do no driving until off of all pain medications or 2 weeks time, whichever came first. She understood her instructions and agrees to follow-up as noted above. Discharge medications included continued vitamins as she has opted to breast-feed. She was otherwise to use [id number] analgesic pain medications as needed. She was provided a prescription for Tylenol 3, 1-2 p.o. every 6 hours as needed pain, #20 dispensed with no refills. Maternal blood type is O+ and rubella status is immune. Discharge hemoglobin and hematocrit were 8.8 and 27.2 respectively. She was otherwise asymptomatic and was instructed to use iron sulfate daily for the next month to recoup her hemoglobin. Procedures: #1. Artificial rupture of membranes #2. Pitocin augmentation #3. Epidural analgesia #4. Primary low-transverse section Patient Condition at Discharge: Stable Plan - Discharge Summary New Discharge Prescriptions: No Action Vit No.179/Iron/Folic [ Tablet] 1 tablet PO DAILY Discharge Medication List Vit No.179/Iron/Folic [ Tablet] 1 tablet PO DAILY 07/28/23 [History] Follow up Appointment(s)/Referral(s): Padmini Rhodes MD [STAFF PHYSICIAN] - 2 Weeks Activity/Diet/Wound Care/Special Instructions: Instructions 1. Do not begin any exercise program for 3 weeks. 2. Do not resume sexual relations for 6 weeks or longer if uncomfortable. 3. You may take tub baths or showers at any time. 4. You may use tampons if desired after 6 weeks. 5. Keep any areas repaired with stitches clean and dry. 6. If you are not nursing, wear a good fitting, supportive bra during the day and limit fluid intake for at least 1 week to prevent breast engorgement. 7. Call the office, , within the next week to make appointment for your 6 week checkup if it has not already been made. 8. Report any of the following occurrences to the doctor promptly: a. Heavy, excessive bleeding b. Chills, fever c. Burning or frequency of urination d. Pain or redness and breasts if nursing e. Increasing pain or swelling of vulva (stitches). In addition to the above instructions, the following additional should be followed: 1. No heavy lifting or straining (exercising) until after 6 week checkup. 2. Keep abdominal incision clean and dry: You may wear a dressing if more comfortable. 3. Make office appointment for 2 weeks after delivery date. Discharge Disposition: HOME SELF-CARE
== END 2023-08-04 14:00 | disposition home or self-care (01) | DRG 788 ==
LOC: FBPOP 09:07 → 4FBP 10:56
PROVIDERS: ADMIT Obstetrics & Gynecology; ATTEND Obstetrics & Gynecology
PROC: 10D00Z1 Extraction of Products of Conception, Low, Open Approach (ICD-10-PCS; principal; 2023-08-02 20:30)
PROC: 10907ZC Drainage of Amniotic Fluid, Therapeutic from Products of Conception, Via Natural or Artificial Opening (ICD-10-PCS; principal; 2023-08-02 20:30)
DX: O36.5930 Maternal care for other known or suspected poor fetal growth, third trimester, not applicable or unspecified (principal); O99.344 Other mental disorders complicating childbirth; O62.1 Secondary uterine inertia; O99.334 Smoking (tobacco) complicating childbirth; F17.290 Nicotine dependence, other tobacco product, uncomplicated; Z28.310 Unvaccinated for COVID-19; Z3A.39 39 weeks gestation of pregnancy; Z37.0 Single live birth
CPT/HCPCS: 59025; 85025; 86850; 86900; 86901; 99213